=== PATIENT | male | born 1985 | race Caucasian/White ===

== ENCOUNTER → 2021-11-03 | Outpatient (CLI) | payer OTHER ==
--- NOTE | 2021-11-03 12:13 | DIREP ---
PROCEDURE:XR SPINE CERVICAL COMP W/ OBLIQUES COMPARISON:None. INDICATIONS:Z00.00 HISTORY AND PHYSICAL EVALUATION TECHNIQUE:AP, lateral, bilateral oblique, and dens views of the cervical spine are provided. FINDINGS: ALIGNMENT:Normal. No subluxation. VERTEBRAE:No fracture or compression abnormality. Small marginal osteophytes at C3-4, C4-5, C6-7. Mild bilateral facet degeneration with mild multilevel bony neural foraminal stenosis, most prominent on the left at C6-7. DISK SPACES:Mild disc space narrowing at C6-7. Minimal disc space narrowing at C3-4 and C4-5. CERVICAL RIBS:None. OTHER:Normal. No prevertebral soft tissue swelling. Lung apices are clear. CONCLUSION: 1. No acute abnormality involving the cervical spine. 2. Mild disc and facet degenerative changes, most prominent at C6-7. Dictated by: Jerry Dhillon MD on 11/03/2021 at 12:09 PM
== END | disposition home or self-care (01) ==
LOC: RAD 11:18
PROVIDERS: ATTEND Nurse Practitioner
DX: M47.812 Spondylosis without myelopathy or radiculopathy, cervical region (principal); M50.323 Other cervical disc degeneration at C6-C7 level
CPT/HCPCS: 72050